=== PATIENT | male | born 1990 | race Asian ===

== ENCOUNTER 2018-01-08 20:28 | Emergency (ER) | payer SELFPAY ==
[2018-01-08 20:58] VITALS: BP 115/64
--- NOTE | 2018-01-08 22:02 | UC ---
Laceration HPI - HPI Summary HPI Summary: 27 y/o male presents to the urgent care reporting he was chasing a bus and fell and skidded in the cement and skinned the left elbow, B/L palms, B/L knees, left hip and lateral side of chest around 1830pm today. Pt states pain is 4/10 and the left elbow and left palm are the wore since they were bleeding. he washed his his lesions Pt is not sure when he had his last Tetanus vaccine. Pt denies fever, swelling. SOB, chest pain, abdominal pain, N/v/D. - History Of Current Complaint Chief Complaint: LISAkin Stated Complaint: HAND LACERATION Time Seen by Provider: 01/08/18 21:52 Hx Obtained From: Patient Laceration Location: Hand - B/l palms, left elbow, B/L knees, left hip and left chest abrasions Mechanism Of Injury: Blunt Trauma Onset/Duration: Sudden Onset, Lasting Hours - 2 hrs Severity: Mild Pain Intensity: 4 Pain Scale Used: 0-10 Numeric Aggravating Factors: Other: - touch Related History: Dominant Hand Right - Allergies/Home Medications Allergies/Adverse Reactions: Allergies Allergy/AdvReac Type Severity Reaction Status Date / Time No Known Allergies Allergy Verified 01/11/18 07:10 PMH/Surg Hx/FS Hx/Imm Hx Previously Healthy: Yes Other Endocrine History: G6PD defficiency - Surgical History Surgical History: None - Family History Family History: G6PD defficiency - Social History Occupation: Employed Full-time Lives: With Family Alcohol Use: None Substance Use Type: None Smoking Status (MU): Never Smoked Tobacco - Immunization History Hx Tetanus, Diphtheria Vaccination: No - No sure Review of Systems Constitutional: Negative Skin: Rash - multiple abrasions s/p fall: B/L palsm. B/L knees, left elbow, left hip and left side of chest Eyes: Negative ENT: Negative Respiratory: Negative Cardiovascular: Negative Gastrointestinal: Negative Genitourinary: Negative Motor: Negative Neurovascular: Negative Musculoskeletal: Negative Neurological: Negative Psychological: Negative Is Patient Immunocompromised?: No All Other Systems Reviewed And Are Negative: Yes Physical Exam - Summary Physical Exam Summary: Vital Signs Reviewed: Yes General: well developed, well nourished male sitting in the examining table w/o any apparent distress Eye Exam: Normal Eyes: Positive: Conjunctiva Clear - PERRLA, EOMI, fundi grossly normal ENT: Positive: Normal ENT inspection, Hearing grossly normal, Pharynx normal, TMs normal Neck: Positive: Supple, Nontender, No Lymphadenopathy Respiratory: Positive: Chest non-tender, Lungs clear, Normal breath sounds, No respiratory distress Cardiovascular: Positive: RRR, No Murmur, Pulses Normal, Brisk Capillary Refill Abdomen Description: Positive: Nontender, No Organomegaly, Soft. Negative: CVA Tenderness (R), CVA Tenderness (L) Bowel Sounds: Positive: Present Musculoskeletal: Positive: Strength Intact, ROM Intact, No Edema Neurological: Positive: Alert, Muscle Tone Normal Psychological Exam: Normal Skin: Positive:Lateral side of RT elbow near the lateral epicondyle with a superficial abrasion about 2.5cm in size, left palm around thenar eminence w/ a superficial abrasion about 3.o cm in size w/ mild bleeding, Left hip and lateral side of chest w/ superficial abrasion about 2.O cm in size. B/L knee w/ superficial abrasion about 1.0 cm in size. all abrasions tender to palpation. No foreign body observed. FROM of all extremities, no swelling observed, sensation intact, capillary refill brisk, and pulses WNL. Triage Information Reviewed: Yes Vital Signs: Initial Vital Signs Temp 98.7 F 01/08/18 20:51 Pulse 88 01/08/18 20:51 Resp 16 01/08/18 20:51 BP 115/64 01/08/18 20:51 Pulse Ox 98 01/08/18 20:51 Laceration Course/Dx - Course/Dx Course Of Treatment: 27 y/o male presents to the urgent care reporting he was chasing a bus and fell and skidded in the cement and skinned the left elbow, B/ L palms, B/L knees, left hip and lateral side of chest around 1830pm today. Pt states pain is 4/10 and the left elbow and left palm are the wore since they were bleeding. he washed his his lesions Pt is not sure when he had his last Tetanus vaccine. Pt denies fever, swelling. SOB, chest pain, abdominal pain, N/v /D.Hx obtained. Pt w/ multiple superfical skin abrasions s/p fall on examination. Tdap orederd and givne by nurse. Pt tolerated well vaccine. wounds irrigated well w/ warm water and antiseptic. Dry well and Bacitracin ointment applied over all wounds. Left palm and left elbow covered w/ sterile dressings. Pt given Bacitrain ointment and advised to buy OTC and applied BID to avoid infections. Also to Take tylenol PO for pain. Advised to avoid flexions to decrease swelling. Recommended if he develops any signs of infection to return to the urgent care or f/u w/ his PCP for further management. Pt undertood and agreed w/ D/C instructions. - Differential Dx - Laceration/Wound Differental Diagnoses: Abrasion, Cellulitis, Laceration, Puncture Wound Provider Diagnoses: 1-Multiple superficial abrasions s/p fall Discharge - Sign-Out/Discharge Documenting (check all that apply): Discharge/Admit/Transfer - D/c home - Discharge Plan Condition: Stable Disposition: HOME Patient Education Materials: Abrasion (ED) Forms: *Work Release Referrals: [facility] [place] [facility] [Outside] - 3 Days Additional Instructions: 1- Keep wounds clean and dry and avoid excessive movement w/ your hand and elbow to avoid swelling. 2- apply bacitracin oint to affected areas as directed . 3-Take Tylenol PO q6-8hrs prn for pain or swelling. 4- If you develop fever or redness or signs of infections around your abrasions please return to the Urgent care.or f/u w/ your PCP for further management - Billing Disposition and Condition Condition: STABLE Disposition: Home
[2018-01-08] MEDS ORDERED: Tetan/Diph/Pertus SYR(Tdap)* 0.5 ML SYR(BOOSTRIX) use SYR IM ONE (22:20)
== END 2018-01-08 22:45 | disposition home or self-care (01) ==
LOC: UCEAST 20:28
DX: S60.512A Abrasion of left hand, initial encounter (principal); S60.511A Abrasion of right hand, initial encounter; S80.212A Abrasion, left knee, initial encounter; S80.211A Abrasion, right knee, initial encounter; S70.212A Abrasion, left hip, initial encounter; S20.319A Abrasion of unspecified front wall of thorax, initial encounter; S50.312A Abrasion of left elbow, initial encounter; W18.30XA Fall on same level, unspecified, initial encounter; Y93.02 Activity, running; Y92.9 Unspecified place or not applicable; Z23 Encounter for immunization; D55.0 Anemia due to glucose-6-phosphate dehydrogenase [G6PD] deficiency; Z83.2 Family history of diseases of the blood and blood-forming organs and certain disorders involving the immune mechanism
CPT/HCPCS: 90471; 90715; 99202; G0463

== ENCOUNTER 2018-01-11 07:02 | Emergency (ER) | payer SELFPAY ==
[2018-01-11 07:10] VITALS: BP 134/89
[2018-01-11] MEDS ORDERED: Bacitracin OINTMENT* 0.5% 0.5 oz TUBE TOPICAL ONE (07:24)
[2018-01-11] MEDS ORDERED: Mupirocin 2% OINT* TUBE TOPICAL ONE (07:33)
--- NOTE | 2018-01-11 12:07 | UC ---
Yadiel Ayers Natalie, scribed for Charity Kearns MD on 01/11/18 at 0738 . HPI Wound/Suture Re-check - HPI Summary HPI Summary: The patient is a 27 y/o M presenting to [facility] c/o wound to left palm getting worse since last visit to [facility] two days ago. The pt fell on his hand, causing an abrasion that is still red and bleeding. He was prescribed benzethonium chloride but has not yet applied the spray to his wound. He states that there was purulent drainage from his hand last night. He rates the aching pain 4/10 in severity. He denies fever, chills, SOB, abd pain, nausea, and vomiting. He has a G6PD deficiency. He has not had any surgeries in the past. He is not currently on any other medications, and he does not have any allergies. - History Of Current Complaint Chief Complaint: UCWounds Stated Complaint: WOUND RECHECK Time Seen by Provider: 01/11/18 07:05 Hx Obtained From: Patient Onset/Duration: Sudden Onset, Lasting Days - two days, Still Present Severity: Moderate Pain Intensity: 4 Pain Scale Used: 0-10 Numeric Hands: 1 - The pt's wound is on the left hypothenar aspect. - Allergies/Home Medications Allergies/Adverse Reactions: Allergies Allergy/AdvReac Type Severity Reaction Status Date / Time No Known Allergies Allergy Verified 01/11/18 07:10 Home Medications: Home Medications Benzethonium Chloride [Antiseptic Wound-Skin] 1 spray TOPICAL ONCE PRN 01/11/18 [History Confirmed 01/11/18] PMH/Surg Hx/FS Hx/Imm Hx - Additional Past Medical History Additional PMH: POSITIVE: G6PD deficiency Other Endocrine History: NEGATIVE: diabetes - Surgical History Surgical History: None - Family History Known Family History: Negative: Diabetes - Social History Alcohol Use: None Substance Use Type: None Smoking Status (MU): Never Smoked Tobacco Review of Systems Constitutional: Other - NEGATIVE: fever, chills Skin: Other - purulence of wound on left palm, bleeding in wound with redness Eyes: Negative ENT: Negative Respiratory: Other - NEGATIVE: SOB Cardiovascular: Negative Gastrointestinal: Other - NEGATIVE: abd pain, nausea, vomiting Genitourinary: Negative Motor: Negative Neurovascular: Negative Musculoskeletal: Negative Neurological: Negative Psychological: Negative Is Patient Immunocompromised?: No All Other Systems Reviewed And Are Negative: Yes Physical Exam - Summary Physical Exam Summary: Appearance: Well-Appearing, No Pain Distress, Well-Nourished Eyes: conjunctiva clear, no discharge ENT: Hearing grossly normal, no muffled/hoarse voice. Neck: Normal, Supple Respiratory/Lung Sounds: Lungs clear, Normal breath sounds, No respiratory distress, No accessory muscle use Cardiovascular: RRR, No murmur Abdomen: Nontender, Soft, no guarding, not distended Bowel Sounds: Present Musculoskeletal: Normal Neurological: Alert, muscle tone normal Psychiatric:Normal, age appropriate behavior Skin: Warm, Dry, Normal color, Abrasion about [id number] on left hypothenar aspect , Slightly bleeding, No pus coming out, No fluctuation, No significant tenderness, margin of the wound is red and erythematous Triage Information Reviewed: Yes Vital Signs: Initial Vital Signs Temp 98.6 F 01/11/18 07:06 Pulse 104 01/11/18 07:06 Resp 18 01/11/18 07:06 BP 134/89 01/11/18 07:06 Pulse Ox 98 01/11/18 07:06 Vital Signs Reviewed: Yes Course/Dx - Course Course Of Treatment: The patient is a 27 y/o M presenting to [facility] c/o abrasion wound in his left palm that occurred after he fell two days ago. He came to [facility] two days ago. His wound has since worsened, although he has not been applying the benzethonium chloride that he was prescribed. He reports pus that was present on the wound last night, which was not present during the exam today. He denies fever, chills, SOB, abd pain, nausea, and vomiting. Medications reviewed. No allergies noted. In the [facility], the dressing will be changed ans 1 time bactroban applied and will be sent [facility] the tube. . Patient will be discharged home with instructions for wound care. He is advised to change the wound dressing once a day and apply topical cream as twice daily . He will follow up with his PCP in two days. Patient is agreeable with this plan. - Differential Dx - Laceration/Wound Provider Diagnoses: wound in left hypothenar aspect Discharge - Sign-Out/Discharge Documenting (check all that apply): Discharge/Admit/Transfer - Pt will be discharged home. - Discharge Plan Condition: Good Disposition: HOME Patient Education Materials: Acute Wound Care (ED) Referrals: [facility] [place] [facility] [Outside] Additional Instructions: Start using the topical antibiotic and wound care as advised. . Follow up with your primary care doctor in 2 days. Return to Urgent care / ER if symptoms get worse. - Billing Disposition and Condition Condition: GOOD Disposition: Home The documentation as recorded by the Yadiel auguste Natalie accurately reflects the service I personally performed and the decisions made by me, Charity Kearns MD.
== END 2018-01-11 07:54 | disposition home or self-care (01) ==
LOC: UCEAST 07:02
DX: S60.512A Abrasion of left hand, initial encounter (principal); D50.0 Iron deficiency anemia secondary to blood loss (chronic); W19.XXXA Unspecified fall, initial encounter; Y92.9 Unspecified place or not applicable
CPT/HCPCS: 99212; A9270-GY; G0463